=== PATIENT | male | born 1970 | race Caucasian/White ===

== ENCOUNTER → 2017-04-24 | Outpatient (CLI) | payer OTHER | LOC: KOH-I 12:36 | DX: M25.561 Pain in right knee (principal); M25.562 Pain in left knee | CPT/HCPCS: 73562 ==

== ENCOUNTER → 2021-06-28 | Outpatient (CLI) | payer OTHER | LOC: KOH-I 11:23 | DX: J20.9 Acute bronchitis, unspecified (principal) | CPT/HCPCS: 71046 ==

== ENCOUNTER 2022-01-23 11:51 | Inpatient (IN) | payer OTHER ==
[~2022-01-23] VITALS: Ht 172.7 cm; Wt 162.8 kg
[2022-01-23 12:59] LABS: HEMOGLOBIN 17.1 gm/dl (14.0-17.5); RED BLOOD COUNT 5.94 M/UL (4.20-5.50); WHITE BLOOD COUNT 13.4 K/UL (4.5-11.0)
[2022-01-23 13:00] LABS: BUN/CREATININE RATIO 17 (0-10)
[2022-01-23] MEDS ORDERED: PROAIR HFA8.5 GM INH (15:34)
[2022-01-23] MEDS ORDERED: MONTELUKAST SOD10 MG PO (15:35)
[2022-01-23] MEDS ORDERED: COZAAR50 MG PO (15:35)
[2022-01-23] MEDS ORDERED: IBU600 MG PO (15:35)
[2022-01-23] MEDS ORDERED: ADVAIR HFA 230-28 GM INH (15:36)
[2022-01-23] MEDS ORDERED: COLCHICINE0.6 MG PO (15:36)
[2022-01-23] MEDS ORDERED: BENADRYL25 MG PO (15:36)
[2022-01-23] MEDS ORDERED: METOPROLOL SUC100 MG PO (15:36)
[2022-01-24 01:12] LABS: HEMOGLOBIN 16.1 gm/dl (14.0-17.5); RED BLOOD COUNT 5.6 M/UL (4.20-5.50); WHITE BLOOD COUNT 13.1 K/UL (4.5-11.0)
[2022-01-24 01:48] LABS: BUN/CREATININE RATIO 15 (0-10)
[2022-01-25 03:35] LABS: HEMOGLOBIN 15.8 gm/dl (14.0-17.5); RED BLOOD COUNT 5.48 M/UL (4.20-5.50); WHITE BLOOD COUNT 12.3 K/UL (4.5-11.0)
[2022-01-25 03:53] LABS: BUN/CREATININE RATIO 18 (0-10)
[2022-01-26 03:41] LABS: HEMOGLOBIN 15.1 gm/dl (14.0-17.5); RED BLOOD COUNT 5.25 M/UL (4.20-5.50); WHITE BLOOD COUNT 11.4 K/UL (4.5-11.0)
[2022-01-26 04:07] LABS: BUN/CREATININE RATIO 15 (0-10)
[2022-01-26] MEDS ORDERED: ATORVASTATIN CA20 MG PO (10:24)
[2022-01-26] MEDS ORDERED: ASPIRIN EC81 MG PO (10:24)
[2022-01-27 03:28] LABS: HEMOGLOBIN 15.7 gm/dl (14.0-17.5); RED BLOOD COUNT 5.43 M/UL (4.20-5.50); WHITE BLOOD COUNT 12.7 K/UL (4.5-11.0)
[2022-01-27 03:44] LABS: BUN/CREATININE RATIO 13 (0-10)
[2022-01-28 07:08] LABS: HEMOGLOBIN 16.8 gm/dl (14.0-17.5); RED BLOOD COUNT 5.63 M/UL (4.20-5.50); WHITE BLOOD COUNT 24.8 K/UL (4.5-11.0)
[2022-01-28 07:20] LABS: BUN/CREATININE RATIO 21 (0-10)
== END 2022-01-28 18:38 | disposition home or self-care (01) | DRG 287 ==
LOC: ER1 11:51 → CDU 13:52 → MED SURG 4 13:52
PROVIDERS: Internal Medicine Cardiovascular Disease; Physician Assistant Medical; ADMIT Internal Medicine
PROC: B24BZZZ Ultrasonography of Heart with Aorta (ICD-10-PCS; 2022-01-24)
PROC: 4A023N7 Measurement of Cardiac Sampling and Pressure, Left Heart, Percutaneous Approach (ICD-10-PCS; principal; 2022-01-28)
PROC: B2111ZZ Fluoroscopy of Multiple Coronary Arteries using Low Osmolar Contrast (ICD-10-PCS; 2022-01-28)
DX: R07.89 Other chest pain (principal); N17.9 Acute kidney failure, unspecified; Z68.43 Body mass index [BMI] 50.0-59.9, adult; I10 Essential (primary) hypertension; Z20.822 Contact with and (suspected) exposure to COVID-19; E66.01 Morbid (severe) obesity due to excess calories; G47.33 Obstructive sleep apnea (adult) (pediatric); F17.220 Nicotine dependence, chewing tobacco, uncomplicated; D72.829 Elevated white blood cell count, unspecified; G89.29 Other chronic pain; M54.9 Dorsalgia, unspecified; M19.90 Unspecified osteoarthritis, unspecified site; D75.1 Secondary polycythemia; I20.9 Angina pectoris, unspecified; J45.909 Unspecified asthma, uncomplicated; Z91.041 Radiographic dye allergy status; Z79.01 Long term (current) use of anticoagulants; Z79.82 Long term (current) use of aspirin; Z82.49 Family history of ischemic heart disease and other diseases of the circulatory system
CPT/HCPCS: ECHO; 36415; 71045; 78452; 80048; 80053; 80061; 82550; 82553; 83735; 83880; 84100; 84484; 85025; 85027; 85379; 93005; 93017; 93306; 94640; 94664; 94760; 96372; 96374; 99152; 99153; 99285; A9502; C1769; C1887; C1894; G0378; J0360; J1200; J1644; J1650; J2250; J2785; J2930; J3010; J7040; Q9967; U0002

== ENCOUNTER → 2022-04-01 | Outpatient (CLI) | payer OTHER ==
[~2022-04-01] MED LIST: ADVAIR HFA 230-28 GM INH; ASPIRIN EC81 MG PO; ATORVASTATIN CA20 MG PO; BENADRYL25 MG PO; COLCHICINE0.6 MG PO; COZAAR50 MG PO; IBU600 MG PO; METOPROLOL SUC100 MG PO; MONTELUKAST SOD10 MG PO; PROAIR HFA8.5 GM INH
== END ==
LOC: HEART 5 11:08
DX: R06.00 Dyspnea, unspecified (principal)
CPT/HCPCS: 94060; 94729